=== PATIENT | male | born 1960 | race Caucasian/White ===

== ENCOUNTER 2021-06-13 06:23 | Emergency (ER) | payer OTHER ==
[~2021-06-13] VITALS: Ht 185.4 cm; Wt 104.5 kg
[2021-06-13] MEDS ORDERED: morphine 4 MG/ML inj SYRINge IV ONE (07:00)
[2021-06-13] MEDS ORDERED: ondansetron/PF 4mg/2ml inj IV ONE (07:00)
[2021-06-13] MEDS ORDERED: dicyclomine 10mg/ml 2ml ampule IM ONE (07:10)
[2021-06-13] MEDS ORDERED: ketorolac trometh. 30mg/ml inj. IV ONE (07:10)
[2021-06-13 07:32] LABS: BASOPHILS % (AUTO) 0.6 % (0-1); EOSINOPHILS # (AUTO) 0.1 X10'3 (0-0.9); EOSINOPHILS % (AUTO) 1.1 % (0-6); HEMATOCRIT 45.3 % (42.0-52.0); HEMOGLOBIN 15.7 g/dl (14.0-17.9); LYMPHOCYTES # (AUTO) 1.7 X10'3 (1.1-4.8); LYMPHOCYTES % (AUTO) 21.5 % (21-51); MEAN CORPUSCULAR HEMOGLOBIN 27.5 PG (27.0-31.0); MEAN CORPUSCULAR HGB CONC 34.6 g/dL (33.0-36.5); MEAN CORPUSCULAR VOLUME 79.6 FL (78-98); MEAN PLATELET VOLUME 8.7 FL (7.4-10.4); MONOCYTES # (AUTO) 0.6 X10'3 (0-0.9); MONOCYTES % (AUTO) 7.7 % (2-12); NEUTROPHILS # (AUTO) 5.5 X10'3 (1.8-7.7); NEUTROPHILS % (AUTO) 69.1 % (42-75); PLATELET COUNT 303 X10'3 (140-440); RED BLOOD COUNT 5.69 X10'6 (4.70-6.10); RED CELL DISTRIBUTION WIDTH 13.1 % (11.5-14.5); WHITE BLOOD COUNT 7.9 X10'3 (4.5-11.0)
[2021-06-13 07:53] LABS: ALANINE AMINOTRANSFERASE 57 U/L (12-78); ALBUMIN 4.3 G/DL (3.4-5.0); ALBUMIN/GLOBULIN RATIO 1.2 (1.1-1.5); ALKALINE PHOSPHATASE 93 IU/L (46-116); ANION GAP 15 (8-16); ASPARTATE AMINO TRANSFERASE 31 U/L (10-37); BILIRUBIN,TOTAL 1.1 MG/DL (0.1-1.0); BLOOD UREA NITROGEN 23 MG/DL (7-18); CHLORIDE 101 MMOL/L (99-107); CREATININE 1.44 MG/DL (0.60-1.10); GLUCOSE 201 MG/DL (70-104); LIPASE 80 U/L (73-393); POTASSIUM 3.8 MMOL/L (3.5-5.1); SODIUM 138 MMOL/L (135-145); TOTAL CARBON DIOXIDE 21.9 MMOL/L (24-32); TOTAL PROTEIN 7.8 G/DL (6.4-8.2); eGFR 50 ML/MIN
[2021-06-13] MEDS ORDERED: normal saline 1000ml 1,000 ML IV ONE (08:10)
[2021-06-13 09:56] LABS: CLARITY,URINE CLEAR (Clear); GLUCOSE, URINE NEGATIVE (Neg); KETONES,URINE 15 mg/dl (Neg); LEUKOCYTE ESTERASE ,URINE NEGATIVE (Neg); NITRITES, URINE NEGATIVE (Neg); OCCULT BLOOD,URINE NEGATIVE (Neg); PH,URINE 6.5 (4.8-8.0); PROTEIN,URINE 30 mg/dl (Neg); UROBILINOGEN,URINE 0.2 E.U/dL (0.2-1.0)
[2021-06-13 10:29] LABS: COLOR,URINE DARK YELLOW (Yellow); UA COLLECTION TYPE VOIDED
[2021-06-13 10:31] LABS: BACTERIA,URINE NONE SEEN /HPF (Neg); MUCUS STRANDS MODERATE /LPF (Neg); RBC,URINE NONE SEEN /HPF (0-2); SQUAMOUS EPITHELIAL CELL,UR NONE SEEN /LPF (FEW); WBC,URINE 0-4 /HPF (0-4)
[2021-06-13 10:32] LABS: SPERM MODERATE /HPF (NEGATIVE)
[2021-06-13] MEDS ORDERED: ONDA4TAB6 PO (10:34)
[2021-06-13] MEDS ORDERED: HYDR-3965 PO (10:34)
[2021-06-13 10:51] VITALS: BP 118/68
== END 2021-06-13 10:53 | disposition home or self-care (01) ==
LOC: ER 06:25
DX: N20.0 Calculus of kidney (principal); R22.9 Localized swelling, mass and lump, unspecified; R10.32 Left lower quadrant pain; Z79.899 Other long term (current) drug therapy
CPT/HCPCS: 36415; 74176; 80053; 81001; 83605; 83690; 84145; 85025; 96361; 96372; 96374; 96375; 99284; J0500; J1885; J2270; J2405; J7030